=== PATIENT | female | born 1960 | race Caucasian/White ===

== ENCOUNTER → 2017-02-13 02:09 | Emergency (ER) | payer BC ==
[~2017-02-13 02:09] MED LIST: Ketorolac INJ* 60 MG/2 ML VIAL IM ONE
[2017-02-13 03:08] LABS: Urine Bacteria 1+ (Absent); Urine Bilirubin Negative (Negative); Urine Glucose Negative (Negative); Urine Nitrite Negative (Negative)
--- NOTE | 2017-02-13 04:23 | ED ---
Mohan Perales Billy, scribed for Nilo Rust MD on 02/13/17 at 0235 . Back Pain - HPI Summary HPI Summary: Patient is a 56 year-old female coming to [facility] for evaluation of pain in her flanks bilaterally as well as pain in the upper abdomen. She states that her pain started yesterday as a dull ache but has progressed and worsened with time. She had Soma at home and took some without any significant relief, but has taken no OTC analgesics. Denies any fever. - History of Current Complaint Chief Complaint: EDAbdPain Stated Complaint: BACK/ABD PAIN Time Seen by Provider: 02/13/17 02:20 Hx Obtained From: Patient Onset/Duration: Gradual Onset Onset/Duration: Started Days Ago Timing: Constant Back Pain Location: Is Discrete @ - flanks, upper abd Severity Initially: Moderate Severity Currently: Moderate Pain Intensity: 7 Pain Scale Used: 0-10 Numeric Aggravating Symptom(s): Nothing Alleviating Symptom(s): Nothing Associated Signs And Symptoms: Positive: Abdominal Pain - Allergies/Home Medications Allergies/Adverse Reactions: Allergies Allergy/AdvReac Type Severity Reaction Status Date / Time No Known Allergies Allergy Verified 02/13/17 02:42 PMH/Surg Hx/FS Hx/Imm Hx Endocrine/Hematology History: Denies: Hx Diabetes, Hx Thyroid Disease Cardiovascular History: Denies: Hx Hypertension Respiratory History: Reports: Hx Chronic Obstructive Pulmonary Disease (COPD) Denies: Hx Asthma GI History: Denies: Hx Ulcer Musculoskeletal History: Denies: Hx Rheumatoid Arthritis, Hx Osteoporosis - Cancer History Hx Chemotherapy: No Hx Radiation Therapy: No - Surgical History Surgery Procedure, Year, and Place: Hysterectomy, tubal ligation, right thumb ulnar nerve surgery; left elbow Infectious Disease History: Denies: Hx Clostridium Difficile, Hx Hepatitis, Hx Human Immunodeficiency Virus (HIV), Hx of Known/Suspected MRSA, Hx Shingles, Hx Tuberculosis, Hx Known/ Suspected VRE, Hx Known/Suspected VRSA, History Other Infectious Disease, Traveled Outside the [place] in Last 30 Days - Family History Family History: There is a family history of breast cancer. - Social History Alcohol Use: Occasionally Substance Use Type: Reports: None Smoking Status (MU): Heavy Every Day Tobacco Smoker Type: Cigarettes Amount Used/How Often: 1/2 ppd Review of Systems Negative: Fever Positive: Cough Positive: Abdominal Pain Positive: flank pain All Other Systems Reviewed And Are Negative: Yes Physical Exam Triage Information Reviewed: Yes Vital Signs On Initial Exam: Initial Vitals Temp Pulse Resp BP Pulse Ox 98.5 F 74 16 146/76 99 02/13/17 02:10 02/13/17 02:10 02/13/17 02:10 02/13/17 02:10 02/13/17 02:10 Vital Signs Reviewed: Yes Appearance: Positive: Well-Appearing, No Pain Distress Skin: Positive: Warm Eyes: Positive: MITCHELL ENT: Positive: Hearing grossly normal Neck: Positive: Supple Respiratory/Lung Sounds: Positive: Breath Sounds Present Cardiovascular: Positive: RRR Abdomen Description: Positive: Nontender, Soft Musculoskeletal: Positive: Strength/ROM Intact Diagnostics - Vital Signs Vital Signs Temp Pulse Resp BP Pulse Ox 02/13/17 02:10 98.5 F 74 16 146/76 99 - Laboratory Lab Results: Lab Results 02/13/17 Range/Units 02:50 Urine Color Yellow Urine Appearance Clear Urine pH 5.0 (5-9) Ur Specific [place] 1.017 (1.010-1.030) Urine Protein Negative (Negative) Urine Ketones Negative (Negative) Urine Blood 1+ H (Negative) Urine Nitrate Negative (Negative) Urine Bilirubin Negative (Negative) Urine Urobilinogen Negative (Negative) Ur Leukocyte Esterase Trace H (Negative) Urine WBC (Auto) Trace(0-5/hpf) (Absent) Urine RBC (Auto) 3+(>10/hpf) H (Absent) Ur Squamous Epith Cells Present H (Absent) Urine Bacteria 1+ H (Absent) Urine Glucose Negative (Negative) Urine Ascorbic Acid * H (Negative) Lab Statement: Any lab studies that have been ordered have been reviewed, and results considered in the medical decision making process. - Radiology CXR Xray Interpretation: No Acute Changes Radiology Interpretation Completed By: ED Physician - CT Abd/pel CT Interpretation Completed By: Radiologist - No uretal stones or hydronephrosis. Moderate to large stool in the colon. Appendix normal. No focal bowel inflammation seen. Mild hepatomegaly. Re-Evaluation - Re-Evaluation First Eval Change: Improved Back Pain Course/Dx - Diagnoses Provider Diagnoses: Abdominal pain, Flank pain Discharge - Discharge Plan Condition: Stable Disposition: HOME Patient Education Materials: Flank Pain (ED), Abdominal Pain (ED) Referrals: Ady Guzmán MD [Primary Care Provider] - The documentation as recorded by the Mohan choi Billy accurately reflects the service I personally performed and the decisions made by me, Nilo Rust MD.
[2017-02-13 04:40] VITALS: BP 110/61
--- NOTE | 2017-02-13 07:20 | RAD ---
INDICATION: Pleuritic chest pain. COMPARISON: Comparison is made with a prior chest x-ray study from August 24, 2015. TECHNIQUE: Dual-energy PA and lateral views of the chest were obtained. FINDINGS: The heart is within normal limits in size. Mediastinal and hilar contours appear within normal limits. The lungs are clear. No pleural effusion or pneumothorax is seen. IMPRESSION: NO EVIDENCE FOR ACTIVE CARDIOPULMONARY DISEASE.
--- NOTE | 2017-02-13 07:29 | RAD ---
INDICATION: Bilateral flank pain and hematuria. COMPARISON: Comparison is made with a prior CT of the abdomen and pelvis from [facility] 2016. TECHNIQUE: A CT scan of the abdomen and pelvis was performed without intravenous or oral contrast. Contiguous axial sections were obtained from the lung bases through the symphysis pubis. Images were reconstructed in the coronal and sagittal planes. FINDINGS: There is mild dependent left lower lobe subsegmental atelectasis. The lung bases otherwise appear clear. No pleural effusion is present. The liver and spleen are within normal limits in size without significant focal abnormality on this noncontrast study. No calcified gallstones are seen. The pancreas appears to be within normal limits in size. The adrenal glands and kidneys are normal in size. There is a 5 x 2 mm calcific density present in the left renal hilum consistent with a renal calculus or vascular calcification. No hydronephrosis is seen. No ureteral or bladder calculi are seen. The aorta is normal in caliber with moderate calcific plaque present. No significant enlarged retroperitoneal lymph nodes are seen. The stomach, small and large bowel appear nondistended. The appendix is within normal limits. There is a moderate to large amount retained stool present. There is no evidence for diverticulitis or colitis. The uterus is retroverted and normal in size. No free intraperitoneal air or fluid is seen. No significant focal osseous abnormality is seen. IMPRESSION: 1. POSSIBLE LEFT RENAL CALCULUS VERSUS VASCULAR CALCIFICATION. 2. MODERATE TO LARGE AMOUNT RETAINED STOOL. 3. ATHEROSCLEROTIC CHANGE IN THE ABDOMINAL AORTA.
== END | disposition home or self-care (01) ==
LOC: ED 02:09
DX: R10.10 Upper abdominal pain, unspecified (principal); R05 Cough; F17.211 Nicotine dependence, cigarettes, in remission
CPT/HCPCS: 71020; 74176; 81003; 81015; 87086; 96372; 99282; J1885

== ENCOUNTER 2017-11-08 08:35 | Emergency (ER) | payer BC ==
[2017-11-08 08:53] VITALS: BP 123/77
--- NOTE | 2017-11-08 10:02 | UC ---
FLU HPI - HPI Summary HPI Summary: Patient presents to the with CC of body aches, fever at 102, sweats, chills, congestion, cough. Endorses many sick contacts and has fever at 104. She is otherwise healthy. Takes no medications. Smoker. Symptoms began 2 days ago and have been worsening. Eating and drinking OK. Denies urinary symptoms, N/V/C/D or CANELA. - History of Current Complaint Chief Complaint: UCRespiratory Stated Complaint: SINUS COMPLAINT Time Seen by Provider: 11/08/17 09:15 Hx Obtained From: Patient ?: No Onset/Duration: Sudden Onset Severity Currently: Moderate Severity Initially: Moderate Pain Intensity: 3 Pain Scale Used: 0-10 Numeric Associated Signs & Symptoms: Positive: Fever, T Max - 102, F/C Related Hx: Possible Flu/Infectious Exposure - Risk Factors Influenza Risk Factors: Negative - Allergy/Home Medications Allergies/Adverse Reactions: Allergies Allergy/AdvReac Type Severity Reaction Status Date / Time No Known Allergies Allergy Verified 11/08/17 08:48 Home Medications: Home Medications Naproxen Sodium [Aleve] 220 mg PO BID 11/08/17 [History Confirmed 11/08/17] PMH/Surg Hx/FS Hx/Imm Hx Previously Healthy: Yes - Surgical History Surgical History: Yes Surgery Procedure, Year, and Place: Hysterectomy, tubal ligation, right thumb ulnar nerve surgery; left elbow - Family History Known Family History: Positive: Other - [place] Family History: There is a family history of breast cancer. - Social History Occupation: Employed Full-time Lives: With Family Alcohol Use: Occasionally Substance Use Type: None Smoking Status (MU): Light Every Day Tobacco Smoker Type: Cigarettes Amount Used/How Often: 1/2 ppd Household Exposure Type: Cigarettes Review of Systems Constitutional: Fever, Chills, Fatigue Respiratory: Negative Cardiovascular: Negative Genitourinary: Negative Motor: Negative Neurological: Negative Psychological: Negative Is Patient Immunocompromised?: No All Other Systems Reviewed And Are Negative: Yes Physical Exam Triage Information Reviewed: Yes Appearance: Ill-Appearing, Thin Vital Signs: Initial Vital Signs Temp 99 F 11/08/17 08:50 Pulse 75 11/08/17 08:50 Resp 17 11/08/17 08:50 BP 123/77 11/08/17 08:50 Pulse Ox 99 11/08/17 08:50 Vital Signs Reviewed: Yes Eye Exam: Normal Eyes: Positive: Conjunctiva Clear Neck exam: Normal Neck: Positive: Supple, No Lymphadenopathy Respiratory Exam: Normal Respiratory: Positive: Chest non-tender, Lungs clear Cardiovascular Exam: Normal Cardiovascular: Positive: RRR Musculoskeletal Exam: Normal Neurological Exam: Normal Psychological Exam: Normal Psychological: Positive: Age Appropriate Behavior Skin Exam: Normal Flu Course/Dx - Course Course Of Treatment: Evaluated for flu like symptoms. Flu A positive. She is given tamiflu 75mg BID. Will follow up with her PCP. - Differential Dx/Diagnosis Differential Diagnosis/HQI/PQRI: Influenza Provider Diagnoses: Influenza A Discharge - Discharge Plan Condition: Stable Disposition: HOME Prescriptions: Oseltamivir CAP* [Tamiflu CAP*] 75 mg PO BID #10 cap Patient Education Materials: Influenza (ED) Referrals: Ady Guzmán MD [Primary Care Provider] - Additional Instructions: Please follow up for worsening symptoms. Tamiflu twice daily x 5 days Tylenol 650mg for fevers - three times daily Intermittently, may use ibuprofen for relief.
== END 2017-11-08 10:05 | disposition home or self-care (01) ==
LOC: UCEAST 08:35
DX: J11.1 Influenza due to unidentified influenza virus with other respiratory manifestations (principal); F17.210 Nicotine dependence, cigarettes, uncomplicated
CPT/HCPCS: 87502; 99212; G0463